=== PATIENT | female | born 1940 | race Caucasian/White ===

== ENCOUNTER 2023-09-11 06:49 | Emergency (ER) | payer MEDICARE ==
[2023-09-11] MEDS ORDERED: Metoclopramide HCl 10 MG (2 mL) VIAL ONE (07:42)
[2023-09-11 07:55] LABS: Actual Bicarbonate (HCO3v) 26.5 mEq/L (22-28); Base Excess 0.5 mEq/L (-2.0 to +3.0); Chloride (VBG) 97 mmol/L (98-106); Hematocrit-VBG 39 % (36.0-47.0); Hemoglobin (Hb) 13.3 g/dL (11.7-16.1); Potassium (VBG) 4.09 mmol/L (3.70-5.30); Sodium 140 mmol/L (133-146); pH (venous) 7.361 (7.32-7.43)
[2023-09-11 07:57] LABS: #Eosinphils 0.1 thou/uL (0.0-0.7); #Monocytes 0.7 thou/uL (0.11-0.59); #Neutrophils 14.3 thou/uL (1.40-6.50); %Basophils 0.3 % (0.0-1.0); %Eosinophils 0.9 % (0.0-10.0); %Lymphocytes 2.5 % (21.0-51.0); %Monocytes 4.4 % (0.0-10.0); %Neutrophils 91.6 % (42.0-75.0); Hematocrit 37.5 % (36.0-47.0); Hemoglobin 12.2 g/dL (12.0-16.0); Mean Corpuscular HGB CONC 32.5 g/dL (32.0-36.0); Mean Corpuscular Hemoglobin 29.5 pg (27.0-31.0); Mean Corpuscular Volume 90.8 fl (78.0-98.0); Mean Platelet Volume 9.4 fL (7.4-10.4); Platelet Count 173 10x3/uL (130-400); RBC Distribution Width 13.2 % (11.5-14.5); Red Blood Cell (RBC) Count 4.13 mill/uL (4.20-5.40); White Blood Cell (WBC) Count 15.6 10x3/uL (4.8-10.8)
[2023-09-11 08:19] LABS: ALT (SGPT) 21 U/L (8-55); AST (SGOT) 33 U/L (5-34); Alkaline Phosphatase 178 U/L (40-110); Anion Gap 19 mmol/L (10-20); BUN (Urea Nitrogen) 31 mg/dL (9.8-20.1); Bilirubin, Total 0.5 mg/dL (0.2-1.2); Calc. Creatinine Clearance 0 mL/min (70-130); Calcium 10.6 mg/dL (7.8-10.44); Carbon Dioxide 26 mmol/L (23-31); Chloride 97 mmol/L (98-107); Estimated GFR 10; Globulin 4.2 g/dL (2.4-3.5); Glucose 277 mg/dL (83-110); Lipase 56 U/L (8-78); Magnesium 2.2 mg/dL (1.6-2.6); Protein, Total 8.2 g/dL (5.8-8.1); Sodium 138 mmol/L (136-145)
[2023-09-11 10:51] LABS: SARS-CoV-2 NAA Rapid Test Not Detected (NotDetected)
[2023-09-11 12:04] LABS: Bilirubin Negative (Negative); Blood, Urine Trace (Negative); Clarity Turbid (Clear); Glucose, Urine (Dipstick) 300 mg/dL (Negative); Ketone, Urine Trace mg/dL (Negative); Leukocyte 500 Leu/uL (Negative); Nitrite Negative (Negative); Protein, Urine (Dipstick) 200 mg/dL (Neg-Trace); RBC/HPF 0-3 HPF (0-3); Squamous Epithelial 0-3 HPF (0-3); Urobilinogen Normal mg/dL (Less than 2); WBC/HPF Greater than 50 HPF (0-3)
[2023-09-11 12:12] LABS: Bacteria/HPF 3+ HPF (None Seen); Urine Culture Reflex Yes Yes
[2023-09-11] MEDS ORDERED: Sodium Chloride 0.9% 100 ML ONE (12:51)
[2023-09-11] MEDS ORDERED: cefTRIAXone (ROCEPHIN) 1 GM VIAL ONE (12:51)
== END 2023-09-11 13:56 | disposition home or self-care (01) ==
LOC: ERS 06:49
DX: N39.0 Urinary tract infection, site not specified (principal); I12.0 Hypertensive chronic kidney disease with stage 5 chronic kidney disease or end stage renal disease; N18.6 End stage renal disease; E10.22 Type 1 diabetes mellitus with diabetic chronic kidney disease; R19.7 Diarrhea, unspecified; R11.2 Nausea with vomiting, unspecified; Z99.2 Dependence on renal dialysis
CPT/HCPCS: 0240U; 71045; 74176; 80053; 81001; 82805; 83605; 83690; 83735; 84484; 85025; 87040; 87086; 93005; 94760; 87077; 87186; 96361; 96365; 96375; J0696; J2765; J3490